=== PATIENT | male | born 1995 | race Caucasian/White ===

== ENCOUNTER → 2016-08-19 | Outpatient (REF) | payer BC ==
[~2016-08-19] MED LIST: ADDE5TAB5 PO; ALEV220C2 PO; CELE-19 PO; CYCL10TA PO; IBUP80TA PO; MELO15TA4 PO; MULTLIQ7 PO; PROZ20CA11 PO; TYLE167L PO
[2016-08-19 12:16] LABS: ALBUMIN 4.6 GM/DL (3.2-5.2); ALBUMIN/GLOBULIN RATIO 1.77 (1.00-1.93); ALKALINE PHOSPHATASE 69 U/L (45-117); ALT/SGPT 21 U/L (12-78); ANION GAP 7 MEQ/L (8-16); AST/SGOT 14 U/L (15-37); BLOOD UREA NITROGEN 14 MG/DL (7-18); CALCIUM LEVEL 9.5 MG/DL (8.5-10.1); CARBON DIOXIDE LEVEL 30 MEQ/L (21-32); CHLORIDE LEVEL 104 MEQ/L (98-107); CHOLESTEROL LEVEL 143 MG/DL (<200); CREATININE FOR GFR 0.83 MG/DL (0.70-1.30); GLOMERULAR FILTRATION RATE > 60.0 (>60); GLUCOSE, FASTING 84 MG/DL (70-105); POTASSIUM SERUM 4.2 MEQ/L (3.5-5.1); SODIUM LEVEL 141 MEQ/L (136-145); TOTAL PROTEIN 7.2 GM/DL (6.4-8.2); TRIGLYCERIDES LEVEL 57 MG/DL (<150)
== END ==
LOC: M SFHCPLAZ 07:45
PROVIDERS: ATTEND Nurse Practitioner Family
DX: Z00.00 Encounter for general adult medical examination without abnormal findings (principal); Z13.220 Encounter for screening for lipoid disorders

== ENCOUNTER → 2019-03-14 | Outpatient (REF) | payer OTHER ==
[~2019-03-14] MED LIST changes: +ADDE1TAB14 PO; -ADDE5TAB5 PO; -CELE-19 PO; +CELE1CAP4 PO; +MELO15TA28 PO; -MELO15TA4 PO
[2019-03-14 13:09] LABS: ALBUMIN 4.4 GM/DL (3.2-5.2); ALT/SGPT 20 U/L (12-78); BILIRUBIN,TOTAL 0.7 MG/DL (0.2-1.0); BLOOD UREA NITROGEN 8 MG/DL (7-18); CALCIUM LEVEL 9.6 MG/DL (8.5-10.1); CARBON DIOXIDE LEVEL 31 MEQ/L (21-32); CHLORIDE LEVEL 105 MEQ/L (98-107); CREATININE FOR GFR 0.86 MG/DL (0.70-1.30); GLOMERULAR FILTRATION RATE > 60.0 (>60); GLUCOSE, FASTING 85 MG/DL (70-100); SODIUM LEVEL 141 MEQ/L (136-145); TOTAL PROTEIN 7.2 GM/DL (6.4-8.2)
[2019-03-14 14:04] LABS: CHLAMYDIA DNA AMPLIFICATION NEGATIVE (NEGATIVE); GC DNA AMPLIFICATION NEGATIVE (NEGATIVE)
[2019-03-14 14:08] LABS: HIV 1&2 SCREEN CENTAUR NEGATIVE (NEGATIVE)
[2019-03-16 00:06] LABS: Lyme Disease IgG/IgM Antibodie <0.91 ISR (0.00-0.90); Lyme Disease IgM Ab Quantitati <0.80 index (0.00-0.79)
== END ==
LOC: M SFHCPLAZ 09:45
PROVIDERS: ATTEND Nurse Practitioner Family
DX: Z72.51 High risk heterosexual behavior (principal); Z00.00 Encounter for general adult medical examination without abnormal findings

== ENCOUNTER → 2025-05-01 | Outpatient (REF) | payer OTHER ==
[~2025-05-01] MED LIST changes: +AMPH1CAP5 PO; +CLAR10CA3 PO; +CYCL-707 PO; -CYCL10TA PO; +IBUP-354 PO; +MULTTAB61 PO; -PROZ20CA11 PO; +PROZ20CA12 PO
[2025-05-01 14:28] LABS: BASO # 0.0 10^3/uL (0.0-0.2); BASO % 0.6 % (0.0-1.0); EOS # 0.1 10^3/uL (0.0-0.5); EOS % 1.7 % (0.0-3.0); LYMPH # 2.1 10^3/uL (1.5-5.0); LYMPH % 31.7 % (24.0-44.0); MONO # 0.3 10^3/uL (0.0-0.8); MONO % 5.0 % (2.0-8.0); NEUTROPHILS # 4.0 10^3/uL (1.5-8.5); NEUTROPHILS % 60.7 % (36.0-66.0); PLATELET COUNT, AUTOMATED 274 10^3/uL (150-450)
[2025-05-01 14:47] LABS: ALT/SGPT 27 U/L (7.0-40); AST/SGOT 22 U/L (<34); CALCIUM LEVEL 9.8 MG/DL (8.5-10.1); CARBON DIOXIDE LEVEL 28 MMOL/L (20-31); CHLORIDE LEVEL 102 MMOL/L (98-107); CHOLESTEROL LEVEL 203 MG/DL (<200); CHOLESTEROL RISK RATIO 3.69 (<5); CREATININE FOR GFR 0.80 MG/DL (0.70-1.30); GLOMERULAR FILTRATION RATE > 90.0 (>60); LDL CHOLESTEROL 123.9 MG/DL (<100); NON-HDL-C 148.1 MG/DL; POTASSIUM SERUM 4.2 MMOL/L (3.5-5.1); SODIUM LEVEL 142 MMOL/L (136-145); TRIGLYCERIDES LEVEL 121 MG/DL (<150)
== END ==
LOC: M SFHCPLAZ 10:32
PROVIDERS: ATTEND Physician Assistant Medical
DX: J30.1 Allergic rhinitis due to pollen (principal); G44.219 Episodic tension-type headache, not intractable; F98.8 Other specified behavioral and emotional disorders with onset usually occurring in childhood and adolescence; Z13.220 Encounter for screening for lipoid disorders